=== PATIENT | female | born 2000 | race Caucasian/White ===

== ENCOUNTER 2019-07-17 19:41 | Emergency (ER) | payer OTHER ==
[~2019-07-17] VITALS: Ht 154.9 cm; Wt 54.4 kg
[2019-07-17 19:41] VITALS: BP_SYST 110
[2019-07-17] MEDS ORDERED: methylPREDNISolone SOD SUCC/PF 62.5 MG/ML VIAL IVP ONE (20:30)
[2019-07-17 21:32] VITALS: BP_SYST 110
== END 2019-07-17 21:32 | disposition home or self-care (01) ==
LOC: SED 19:41
DX: T78.1XXA Other adverse food reactions, not elsewhere classified, initial encounter (principal); X58.XXXA Exposure to other specified factors, initial encounter
CPT/HCPCS: 96374; 99283